=== PATIENT | female | born 1970 | race Two or more races ===

== ENCOUNTER 2022-04-26 05:15 | Day surgery (SDC) | payer OTHER ==
[~2022-04-26] VITALS: Ht 157.5 cm; Wt 70.3 kg
[~2022-04-26 05:15] MED LIST: ATACAND16 MG; BISOPROLOL-HCT1 EACH PO; LEVOXYL100 MCG; LEVOXYL112 MCG
[2022-04-26] MEDS ORDERED: NAPR500T14 PO (09:11)
[2022-04-26] MEDS ORDERED: Tylenol #3 PO (09:11)
== END 2022-04-26 12:30 | disposition home or self-care (01) ==
LOC: CIR.AMB 05:15
PROVIDERS: ATTEND Obstetrics & Gynecology
DX: N83.02 Follicular cyst of left ovary (principal); N83.01 Follicular cyst of right ovary; N83.292 Other ovarian cyst, left side; N83.291 Other ovarian cyst, right side; N80.8 Other endometriosis; R10.2 Pelvic and perineal pain; Z20.822 Contact with and (suspected) exposure to COVID-19; I10 Essential (primary) hypertension; E03.9 Hypothyroidism, unspecified